=== PATIENT | female | born 1965 | race Caucasian/White ===

== ENCOUNTER 2017-01-19 17:58 | Emergency (ER) | payer BC ==
[2017-01-19 18:05] VITALS: BP 122/79
--- NOTE | 2017-01-19 18:40 | UC ---
Abdominal Pain Female HPI - HPI Summary HPI Summary: Since Jul had change in stool habit -- lots of abd bloating, gas, many loose stools per day, some days having a little liquid stool every time she urinated. Sx have been pretty constant for those 5 months. Today was able to keep down small breakfast, but no appetite, some nausea and gagging, feels like she is not passing anything (gas or stool) since small tool this morning, concerned about obstruction. Denies fever, weight loss, bloody stool, or dietary changes. - History of Current Complaint Chief Complaint: UCAbdominalPain Stated Complaint: GI UPSET Time Seen by Provider: 01/19/17 18:17 Hx Obtained From: Patient ?: No Onset/Duration: Gradual Onset, Still Present Timing: Constant Severity Initially: Mild Severity Currently: Moderate Location: Diffuse Radiates: No Character: Cramping - low abd, Other - bloating Aggravating Factor(s): Food Alleviating Factor(s): Nothing Associated Signs and Symptoms: Positive: Decreased Appetite, Nausea, Diarrhea. Negative: Constipation, Blood in Stool, Urinary Symptoms Allergies/Adverse Reactions: Allergies Allergy/AdvReac Type Severity Reaction Status Date / Time Sertraline [From Zoloft] Allergy Rash Verified 01/19/17 18:01 Sulfa Antibiotics Allergy joint Verified 01/19/17 18:01 inflamation PMH/Surg Hx/FS Hx/Imm Hx Cancer History: Cervical Cancer - Surgical History Surgical History: Yes Surgery Procedure, Year, and Place: TOTAL ABDOMINAL HYSTERECTOMY - Family History Known Family History: Positive: Hypertension - Social History Lives: With Family Alcohol Use: None Substance Use Type: None Smoking Status (MU): Former Smoker Review of Systems Constitutional: Negative Skin: Negative Eyes: Negative ENT: Negative Respiratory: Negative Cardiovascular: Negative Gastrointestinal: Abdominal Pain, Nausea Genitourinary: Negative Motor: Negative Neurovascular: Negative Musculoskeletal: Negative Neurological: Negative Psychological: Negative All Other Systems Reviewed And Are Negative: Yes Physical Exam Triage Information Reviewed: Yes Appearance: Well-Appearing, No Pain Distress, Well-Nourished Vital Signs: Initial Vital Signs Temp 99.3 F 01/19/17 18:01 Pulse 82 01/19/17 18:01 Resp 16 01/19/17 18:01 BP 122/79 01/19/17 18:01 Pulse Ox 100 01/19/17 18:01 Vital Signs Reviewed: Yes Eye Exam: Normal, Other - PERRL Eyes: Positive: Conjunctiva Clear ENT Exam: Normal ENT: Positive: Normal ENT inspection, Hearing grossly normal, Pharynx normal, TMs normal Dental Exam: Normal Neck exam: Normal Neck: Positive: Supple, Nontender, No Lymphadenopathy Respiratory Exam: Normal Respiratory: Positive: Chest non-tender, Lungs clear, Normal breath sounds, No respiratory distress, No accessory muscle use Cardiovascular Exam: Normal Cardiovascular: Positive: RRR, No Murmur Abdomen Description: Positive: Nontender, No Organomegaly, Soft. Negative: CVA Tenderness (R), CVA Tenderness (L), Distended, Guarding Bowel Sounds: Positive: Present, Hypoactive Musculoskeletal Exam: Normal Neurological Exam: Normal Neurological: Positive: Alert Psychological Exam: Normal Skin Exam: Normal Abd Pain Female Course/Dx - Differential Dx/Diagnosis Provider Diagnoses: dyspepsia Discharge - Discharge Plan Condition: Stable Disposition: HOME Patient Education Materials: Indigestion (ED) Referrals: Estephania Crowell MD [Primary Care Provider] - Anthony Esquivel MD [Medical Doctor] - Additional Instructions: Please arrange to follow up with your primary care provider and a GI specialist to pursue further testing.
--- NOTE | 2017-01-19 19:05 | RAD ---
Indication: Nausea. Not passing flatus today. Months of abdominal discomfort. Comparison: November 28, 2012 CT. Technique: Supine view of the abdomen. Report: Unremarkable bowel gas pattern. Moderately large volume of stool in the RIGHT colon. Normal range gas distention of the distal transverse colon and splenic flexure. Negative for dilated small bowel loops. Pelvic surgical clips. No suspicious calcifications or mass effect. Clear lung bases. Surgical clips at the RIGHT breast. IMPRESSION: Moderately large volume of stool in the RIGHT colon. No evidence for bowel obstruction.
== END 2017-01-19 19:42 | disposition home or self-care (01) ==
LOC: UCEAST 17:58
DX: R10.13 Epigastric pain (principal); Z87.891 Personal history of nicotine dependence
CPT/HCPCS: 74000; 99211; G0463